=== PATIENT | male | born 1990 | race Caucasian/White ===

== ENCOUNTER 2018-12-01 09:03 | Emergency (ER) | payer OTHER ==
[2018-12-01 09:15] VITALS: BP 126/81
[2018-12-01] MEDS ORDERED: IPRATROPIUM/ALBUTEROL 3 ML NEB INH STA (09:45)
[2018-12-01] MEDS ORDERED: DEXAMETHASONE 10 MG/ML VIAL PO STA (09:46)
[2018-12-01] MEDS ORDERED: CHERRY SYRUP 10 ML UDC PO ONE (10:00)
--- NOTE | 2018-12-01 10:24 | ED Physician Documentation ---
PD HPI DYSPNEA - Stated complaint Stated Complaint: COUGHING - Chief complaint Chief Complaint: Resp - History obtained from History obtained from: Patient - History of Present Illness Timing - onset: How many weeks ago (1) Timing - duration: Weeks (1) Associated symptoms: Cough Similar symptoms before: Diagnosis (History of similar symptoms in the past with bronchitis.) - Additional information Additional information: The patient is a 28-year-old male who presents with productive cough that has been ongoing for the past week. He reports mild dyspnea, as well as congestion, myalgias, and mild headache. He denies fever or sore throat. He has history of similar symptoms in the past with bronchitis. He smokes cigarettes. Review of Systems Constitutional: reports: Myalgias. denies: Fever Ears: denies: Ear pain Nose: reports: Congestion Throat: denies: Sore throat Cardiac: denies: Chest pain / pressure Respiratory: reports: Dyspnea (mild), Cough GI: denies: Abdominal Pain, Nausea, Vomiting : denies: Dysuria Skin: denies: Rash Musculoskeletal: denies: Back pain, Extremity pain, Extremity swelling Neurologic: reports: Headache (mild). denies: Focal weakness, Numbness PD PAST MEDICAL HISTORY - Past Medical History Cardiovascular: None Endocrine/Autoimmune: None - Present Medications Home Medications: Ambulatory Orders Medication Instructions Recorded Confirmed Albuterol Sulf [Ventolin Hfa 1 - 2 puffs INH Q4HR PRN #1 inhaler 12/01/18 Inhaler] - Allergies Allergies/Adverse Reactions: Allergies Allergy/AdvReac Type Severity Reaction Status Date / Time No Known Drug Allergies Allergy Verified 12/01/18 09:14 - Social History Does the pt smoke?: Yes Smoking Status: Current every day smoker PD ED PE NORMAL - Vitals Vital signs reviewed: Yes (normal) - General General: Alert and oriented X 3, Well developed/nourished - HEENT HEENT: Atraumatic, EOMI, Ears normal, Pharynx benign - Neck Neck: Supple, no meningeal sign, No adenopathy, No JVD - Cardiac Cardiac: RRR, No murmur - Respiratory Respiratory: Other (Expiratory wheezes bilaterally. No rales or rhonchi.) - Abdomen Abdomen: Soft, Non tender - Back Back: No CVA TTP - Derm Derm: No rash - Extremities Extremities: No edema, No calf tenderness / cord - Neuro Neuro: Alert and oriented X 3, No motor deficit, Normal speech Results - Vitals Vitals: Oxygen O2 Source Room air PD MEDICAL DECISION MAKING - ED course Complexity details: re-evaluated patient, considered differential, d/w patient ED course: The patient's presentation is most consistent with asthmatic bronchitis. Clinically pneumonia is unlikely. I doubt pulmonary embolus. Treatment in the emergency department included administration of DuoNeb nebulizer and dexamethasone 10 mg orally. His wheezing resolved with the above treatment, and he felt subjectively improved. He is being discharged with prescription for albuterol inhaler. I discussed with him the expected course of illness, outpatient follow-up, as well as potentially worrisome signs or symptoms that should prompt reevaluation in the emergency department. I discussed with him the importance of tobacco cessation. Departure - Departure Disposition: 01 Home, Self Care Clinical Impression: Bronchitis Condition: Stable Instructions: ED Bronchitis Asthmatic Follow-Up: [facility] [Provider Group] Prescriptions: Albuterol Sulf [Ventolin Hfa Inhaler] 1 - 2 puffs INH Q4HR PRN #1 inhaler PRN Reason: Shortness Of Air/Wheezing Comments: Try to stop smoking cigarettes. You can use albuterol inhaler as prescribed if needed for cough or shortness of breath. You can use Tylenol or ibuprofen if needed for fever or discomfort. Follow-up with primary physician at soonest available appointment. Return to the emergency department if you develop increasing difficulty breathing, or otherwise worsening symptoms. Discharge Date/Time: 12/01/18 10:27
== END 2018-12-01 10:27 | disposition home or self-care (01) ==
LOC: ED 09:03
DX: J40 Bronchitis, not specified as acute or chronic (principal); F17.200 Nicotine dependence, unspecified, uncomplicated
CPT/HCPCS: 94640; 94664; 99281; 99283; A9270

== ENCOUNTER 2020-07-04 13:14 | Emergency (ER) | payer OTHER ==
[2020-07-04 13:37] VITALS: BP 155/84
--- NOTE | 2020-07-04 14:05 | XRAY Report ---
PROCEDURE: Femur 2V LT INDICATIONS: Possible metal object in thigh. TECHNIQUE: 4 views of the femur were acquired. COMPARISON: None. FINDINGS: Bones: No fractures or dislocations. No suspicious bony lesions. 9 mm metallic-appearing foreign b rayray projects in the medial posterior subcutaneous soft tissues IMPRESSION: 9 mm metallic-appearing foreign body projects in the medial posterior distal thigh soft tissues as ab ove Reviewed by: Arik Reynolds MD on 07/04/2020 2:04 PM PDT Approved by: Arik Reynolds MD on 07/04/2020 2:04 PM PDT Station ID: [id number]
[2020-07-04] MEDS ORDERED: BUFFERED LIDOCAINE 10 ML SYRINGE IU ONE (14:09)
--- NOTE | 2020-07-04 15:10 | ED Physician Documentation ---
History of Present Illness - Stated complaint Stated Complaint: LT LEG INJURY - Chief complaint Chief Complaint: Laceration - History obtained from History obtained from: Patient - Additonal information Additional information: Pt comes to the ED c/o leg injury after a piece of metal cut through his pants at work. Pt thinks the metal may be in his leg still. He states he was not injured in any other way. 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 Pt states his main concern is that the metal was covered with grease and debris, and he is worried about potential infection. Review of Systems Ten Systems: 10 systems reviewed and negative Constitutional: reports: Reviewed and negative Eyes: reports: Reviewed and negative Ears: reports: Reviewed and negative Nose: reports: Reviewed and negative Throat: reports: Reviewed and negative Cardiac: reports: Reviewed and negative Respiratory: reports: Reviewed and negative GI: reports: Reviewed and negative : reports: Reviewed and negative Skin: reports: Laceration (s) Musculoskeletal: reports: Reviewed and negative Neurologic: reports: Reviewed and negative Psychiatric: reports: Reviewed and negative Endocrine: reports: Reviewed and negative Immunocompromised: reports: Reviewed and negative PD PAST MEDICAL HISTORY - Past Medical History Cardiovascular: None Endocrine/Autoimmune: None - Present Medications Home Medications: Ambulatory Orders Medication Instructions Recorded Confirmed Albuterol Sulf [Ventolin Hfa 1 - 2 puffs INH Q4HR PRN #1 inhaler 12/01/18 Inhaler] Sulfamethox/Trimeth 800/160 1 each PO BID #10 tablet 07/04/20 [Bactrim Ds 800/160] - Allergies Allergies/Adverse Reactions: Allergies Allergy/AdvReac Type Severity Reaction Status Date / Time No Known Drug Allergies Allergy Verified 07/04/20 13:37 - Social History Does the pt smoke?: Yes Smoking Status: Current every day smoker PD ED PE NORMAL - Vitals Vital signs reviewed: Yes - General General: Alert and oriented X 3, No acute distress - HEENT HEENT: Atraumatic, PERRL, EOMI, Moist mucous membranes - Neck Neck: Supple, no meningeal sign - Respiratory Respiratory: No respiratory distress - Derm Derm: Normal color, Warm and dry, Other (1 cm laceration medial L mid-thigh. No visible FB in wound. No FB palpable beneath skin. 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, No motor deficit, No sensory deficit, Normal speech - Psych Psych: Normal mood, Normal affect Results - Vitals Vitals: Oxygen O2 Source Room air - Rads (name of study) L femur xr Radiology: Final report received, EMP read indepedently, See rad report (9mm opaque fb in soft tissues of posteromedial thigh) Procedures - Laceration (location) L thigh Length in cm: 1 Wound type: Linear, Clean Neurovascular status: Sensory intact, Motor intact Tendon involvement: No: Tendon Injury Anesthesia: Lidocaine 1% Wound Preparation: Hibiclens, Irrigated copiously NS, Wound explored (No FB identified by visualization or by probing with forceps.), To the base. No: FB identified Skin layer closure: Nylon, Interrupted, Size #-0 - enter number (4.0), Sutures - enter # (3) Other: Patient tolerated well, No complications, Neurovascular intact, Dressing applied, Tetanus UTD PD MEDICAL DECISION MAKING - ED course Complexity details: reviewed results, re-evaluated patient, considered differential, d/w patient ED course: I d/w pt that the FB on XR is very small, and it is difficult to determine exactly where it is. We have attempted with direct visualization, probing, and magnet, to locate and remove the metal shard, but this has been unsuccessful. I have d/w pt that the only other option is to extend the wound to try to find it, but that I feel the benefits of this are not sufficient to make this advisable at this time. Pt is in agreement. I have d/w pt that in time, his body will most likely push the hard to the surface, and that at that time, his PCP can apply a local anesthetic and easily remove the metal with a small incision. Given the small and deep nature of this wound, as well as retention of FB, I will start the pt on a short course of prophylactic abx. We have discussed wound care, timeline for suture removal visit, and the usual indications for return. Departure - Departure Disposition: 01 Home, Self Care Clinical Impression: Laceration, Foreign body (FB) in soft tissue Condition: Stable Instructions: ED Foreign Body Soft Tissue, ED Laceration All Prescriptions: Sulfamethox/Trimeth 800/160 [Bactrim Ds 800/160] 1 each PO BID #10 tablet Comments: Your x-ray shows a tiny piece of metal that is embedded in the soft tissue of your leg. Because of its small size, we have not been able to find it and it extracted with either instruments or magnet. At this point in time, your wound has been repaired. Metallic foreign bodies generally do not cause problems and sometimes will be worked to the surface over time by your body. To encourage this process, you may regularly hot pack the area and you may also try putting a magnet over the general area of the wound and where you expect the foreign body to be. It may be that in some months or years, the little metallic piece will work its way to the surface and be able to be extracted at that time. This is acceptable as long as the material is not bothering you. You should be seen by your doctor in 7 days to have your cyst stitches removed. Please keep the wound clean and dry otherwise. You may allow water and soap to run over it, but do not rub, scrub, or immerse the wound in order to prevent infection. If your wound splits open and drains pus, or if you develop redness spreading away from the wound, please return to the emergency department to have the wound re- evaluated. Discharge Date/Time: 07/04/20 15:29
[2020-07-04] MEDS ORDERED: BACITRACIN ZINC OINT 1 PACKET TOP STA (15:17)
== END 2020-07-04 15:29 | disposition home or self-care (01) ==
LOC: ED 13:14
DX: S71.122A Laceration with foreign body, left thigh, initial encounter (principal); W26.9XXA Contact with unspecified sharp object(s), initial encounter; W45.8XXA Other foreign body or object entering through skin, initial encounter; Y99.0 Civilian activity done for income or pay; F17.200 Nicotine dependence, unspecified, uncomplicated
CPT/HCPCS: 12001; 73552; 99282; 99284; A9270